=== PATIENT | female | born 1945 | race Caucasian/White ===

== ENCOUNTER 2017-05-12 14:49 | Emergency (ER) | payer OTHER ==
[~2017-05-12] VITALS: Ht 160 cm; Wt 76.2 kg
[~2017-05-12 14:49] MED LIST: ADVAIR HFA 115/12 GM; AVELOX ABC PAC400 MG; GLIMEPIRIDE2 MG PO; PROVENTIL3 ML/2.5 M
[2017-05-12] MEDS ORDERED: SYNTHROID50 MCG (15:44)
[2017-05-12] MEDS ORDERED: AIRBORNE EFFER1 EACH PO (20:48)
[2017-05-12] MEDS ORDERED: MUCINEX D ER 11 EACH PO (20:48)
[2017-05-12] MEDS ORDERED: XOPENEX CO1.25 MG/0. IH (20:48)
[2017-05-12] MEDS ORDERED: TESSALON PERLE100 MG PO (20:48)
== END 2017-05-12 21:52 | disposition home or self-care (01) ==
LOC: ER 14:49
DX: J06.9 Acute upper respiratory infection, unspecified (principal); J11.1 Influenza due to unidentified influenza virus with other respiratory manifestations

== ENCOUNTER 2019-11-09 18:33 | Emergency (ER) | payer OTHER ==
[~2019-11-09] VITALS: Ht 157.5 cm; Wt 79.8 kg
[~2019-11-09 18:33] MED LIST changes: +AIRBORNE EFFER1 EACH PO; +MUCINEX D ER 11 EACH PO; +SYNTHROID50 MCG; +TESSALON PERLE100 MG PO; +XOPENEX CO1.25 MG/0. IH
[2019-11-09] MEDS ORDERED: MOTION RELIEF25 MG PO (22:45)
[2019-11-09] MEDS ORDERED: ZOFRAN4 MG SL (22:45)
== END 2019-11-09 22:57 | disposition home or self-care (01) ==
LOC: ER 18:33
DX: R42 Dizziness and giddiness (principal)

== ENCOUNTER 2019-11-19 07:40 | Outpatient (CLI) | payer OTHER ==
[~2019-11-19 07:40] MED LIST changes: +MOTION RELIEF25 MG PO; +ZOFRAN4 MG SL
== END 2019-11-19 07:54 | disposition home or self-care (01) ==
LOC: SONOGRAMA 07:40
PROVIDERS: ATTEND Pathology Anatomic Pathology & Clinical Pathology
DX: E04.1 Nontoxic single thyroid nodule (principal)

== ENCOUNTER 2020-10-13 08:59 | Outpatient (CLI) | payer OTHER | END 2020-10-13 09:02 | disposition home or self-care (01) | LOC: SONOGRAMA 08:59 | PROVIDERS: ATTEND Pathology Anatomic Pathology & Clinical Pathology | DX: E04.1 Nontoxic single thyroid nodule (principal) ==